=== PATIENT | female | born 1970 | race Caucasian/White ===

== ENCOUNTER 2016-11-26 23:20 | Emergency (ER) | payer OTHER ==
[2016-11-27] MEDS ORDERED: Ondansetron INJ* 2 MG/ML VIAL IV ONE (00:29)
[2016-11-27] MEDS ORDERED: Morphine INJ* 4 MG/ML 1 ML SYRINGE IV ONE (00:29)
[2016-11-27 00:48] LABS: Hematocrit 39 % (35-47); Hemoglobin 13.4 g/dl (12.0-16.0); Mean Corpuscular HGB Conc 34 g/dl (31-36); Mean Corpuscular Hemoglobin 35 pg (27-31); Mean Corpuscular Volume 103 fL (80-97); Mean Platelet Volume 10 um3 (7.4-10.4); Red Cell Distribution Width 13 % (10.5-15); White Blood Count 11.1 10^3/ul (3.5-10.8)
[2016-11-27 00:54] LABS: Urine Bacteria Absent (Absent); Urine Bilirubin Negative (Negative); Urine Glucose Negative (Negative); Urine Nitrite Negative (Negative)
[2016-11-27 01:03] LABS: ALT 24 U/L (7-52); AST 18 U/L (13-39); Albumin 4.7 g/dL (3.2-5.2); Alkaline Phosphatase 47 U/L (34-104); Anion Gap 9 mmol/L (2-11); Blood Urea Nitrogen 7 mg/dL (6-24); C Reactive Protein 15.17 mg/L (< 5.00); CO2 Carbon Dioxide 23 mmol/L (22-32); Calcium 9.5 mg/dL (8.6-10.3); Chloride 101 mmol/L (101-111); EGFR African American 89.8 (>60); EGFR Non-African American 69.8 (>60); Globulin 2.8 g/dL (2-4); Glucose 103 mg/dL (70-100); Lipase < 10 U/L (11.0-82.0); Potassium 3.3 mmol/L (3.5-5.0); Sodium 133 mmol/L (133-145); Total Protein 7.5 g/dL (6.4-8.9)
[2016-11-27] MEDS ORDERED: Iohexol 300* (CONTRAST) 10 ML SDV IV ONE (01:22)
[2016-11-27] MEDS ORDERED: Levofloxacin 500 MG IVPREMIX(* 500 MG/100 ML BAG IVPB ONE (02:33)
[2016-11-27] MEDS ORDERED: metroNIDAZOLE IV 500 MG/100ML* 500 MG/100 ML BAG IVPB ONE (02:33)
[2016-11-27 05:54] VITALS: BP 110/64
--- NOTE | 2016-11-27 06:02 | ED ---
Mily Bowman SooYoung, scribed for Sushil Dimas on 11/27/16 at 0028 . Abdominal Pain/Female - HPI Summary HPI Summary: A 46 y/o F presents to ED with with c/o constant L-sided flank pain onset this AM when she woke up. Described as sharp, throbbing and rated as 10 out of 10. Associated sx: n/v. Denies frequency, dysuria. PMHx: lupus, diverticulitis. She states she had diverticulitis 3x over the past few years. Denies prev kidney stones. - History of Current Complaint Chief Complaint: EDFlankPain Stated Complaint: ABD AND LOWER BACK PAIN Time Seen by Provider: 11/27/16 00:17 Hx Obtained From: Patient Onset/Duration: Sudden Onset, Lasting Hours, Still Present Timing: Constant Severity Currently: Severe Pain Intensity: 10 Pain Scale Used: 0-10 Numeric Location: Flank - L Character: Sharp, Other: - throbbing Associated Signs and Symptoms: Positive: Nausea, Vomiting. Negative: Urinary Symptoms - neg: frequency, dysuria Allergies/Adverse Reactions: Allergies Allergy/AdvReac Type Severity Reaction Status Date / Time No Known Allergies Allergy Verified 11/26/16 23:24 PMH/Surg Hx/FS Hx/Imm Hx Previously Healthy: No - lupus GI History: Reports: Hx Diverticulosis History: Denies: Hx Kidney Stones Infectious Disease History: No Infectious Disease History: Denies: Traveled Outside the [place] in Last 30 Days - Social History Occupation: Unemployed - OTHER Lives: With Family Review of Systems Negative: Fever Positive: Vomiting, Nausea Positive: pain - L flank. Negative: dysuria, frequency All Other Systems Reviewed And Are Negative: Yes Physical Exam Triage Information Reviewed: Yes Vital Signs On Initial Exam: Initial Vitals Temp Pulse Resp BP Pulse Ox 98.5 F 58 16 179/88 100 11/26/16 23:25 11/26/16 23:25 11/26/16 23:25 11/26/16 23:25 11/26/16 23:25 Vital Signs Reviewed: Yes Appearance: Positive: Well-Appearing, No Pain Distress Skin: Positive: Warm, Skin Color Reflects Adequate Perfusion, Dry Head/Face: Positive: Normal Head/Face Inspection Eyes: Positive: EOMI, [place] ENT: Positive: Normal ENT inspection Neck: Positive: Supple, Nontender Respiratory/Lung Sounds: Positive: Clear to Auscultation, Breath Sounds Present Cardiovascular: Positive: RRR, Pulses are Symmetrical in both Upper and Lower Extremities Abdomen Description: Positive: Soft, Other: - pos: LLQ tenderness Bowel Sounds: Positive: Present Musculoskeletal: Positive: Normal, Strength/ROM Intact Neurological: Positive: Normal, Sensory/Motor Intact, Alert, Oriented to Person Place, Time Diagnostics - Vital Signs Vital Signs Temp Pulse Resp BP Pulse Ox 11/26/16 23:27 98.5 F 58 16 179/88 100 11/26/16 23:25 98.5 F 58 16 179/88 100 - Laboratory Result Diagrams: 11/27/16 00:30 11/27/16 00:30 Lab Statement: Any lab studies that have been ordered have been reviewed, and results considered in the medical decision making process. - CT ABD/PEL CT CT Interpretation: Positive (See Comments) - IMPRESSION: 1. Focal colonic inflammation along the proximal descending colon with inflamed diverticula and free fluid in the left paracolic gutter. This is suspicious for diverticulitis although focal colitis, whether infectious, inflammatory or ischemic cannot be excluded. Correlate clinically. CT Interpretation Completed By: Radiologist Abdominal Pain Fem Course/Dx - Course Course Of Treatment: A 46 y/o F presents to ED with with c/o constant L-sided flank pain onset this AM when she woke up. Described as sharp, throbbing and rated as 10 out of 10. Associated sx: n/v. Denies frequency, dysuria. PMHx: lupus, diverticulitis. She states she had diverticulitis 3x over the past few years. Denies prev kidney stones. Pt given morphine, Zofran, Flagyl, Levaquin in ED. Bloodwork and lab results are without significant abnormality except CRP is 15.17. UA results show 1+ ketones, 1+ blood, trace esterase, 1.009 specific gravity, squamous epithelia are present. ABD/PEL CT shows "Focal colonic inflammation along the proximal descending colon with inflamed diverticula and free fluid in the left paracolic gutter. This is suspicious for diverticulitis although focal colitis, whether infectious, inflammatory or ischemic cannot be excluded. Correlate clinically.". Will D/C pt home with flagyl, Levaquin, Percocet, and to f/u with PCP. - Diagnoses Provider Diagnoses: Diverticulitis Discharge - Discharge Plan Condition: Stable Disposition: HOME Prescriptions: Levofloxacin TAB* [Levaquin TAB*] 500 mg PO DAILY #10 tab Metronidazole [Flagyl 500 MG TAB] 500 mg PO TID #30 tab oxyCODONE/Acetamin 5/325 MG* [Percocet 5/325 TAB*] 1 tab PO Q8H PRN #20 tab MDD 3 PRN Reason: Pain Patient Education Materials: Oxycodone/Acetaminophen (By mouth), Metronidazole (By mouth), Levofloxacin (By mouth), Diverticulitis (ED), Diverticulitis Diet ( ED) Referrals: [facility] [Outside] Non Staff,Doctor [Primary Care Provider] - Additional Instructions: Establish with a primary care provider and follow up in 3 days. Please return to the ED if you experience new or worsening symptoms. The documentation as recorded by the Mily cramer SooYoung accurately reflects the service I personally performed and the decisions made by me, Sushil Dimas.
--- NOTE | 2016-11-27 07:45 | RAD ---
CLINICAL HISTORY: Left flank pain COMPARISON: None TECHNIQUE: Multiple contiguous axial CT scans were obtained of the abdomen and pelvis after the administration of intravenous contrast. Coronal and sagittal multiplanar reformations are submitted for review. Oral contrast was not administered. Delayed images were obtained through the abdomen and pelvis. FINDINGS: LUNG BASES: The lung bases are clear. LIVER: The liver is normal in shape, size, contour, and attenuation. BILE DUCTS: There is no intrahepatic or extrahepatic biliary dilatation. GALLBLADDER: The gallbladder is normal, without pericholecystic inflammatory change. PANCREAS: The pancreas is normal, without mass or ductal dilatation. SPLEEN: Normal in size and appearance. UPPER GI TRACT: Evaluation of the gastrointestinal tract is limited by incomplete gastric distention. The upper GI tract is unremarkable. SMALL BOWEL AND MESENTERY: The small bowel is normal in contour, course, and caliber. There is no obstruction or dilatation. COLON: There is mucosal thickening of the descending colon with a small amount of fluid tracking along the paracolic gutter. There is an associated diverticulum at this level. There is a tubular, vermiform, hollow viscus that is blind ending, and originates from the cecum, consistent with a normal appendix. There is no periappendiceal inflammatory change. This is best seen on axial images 49 through 52. ADRENALS: Normal bilaterally. KIDNEYS: There is horizontal deviation of the axis of the right kidney. There is no appreciable hydronephrosis or nephrolithiasis. BLADDER: The bladder is smooth in contour. PELVIC ORGANS: There is prominence of the vasculature along the broad ligaments bilaterally with dilatation of the left compatible vein. The pelvic organs are otherwise unremarkable. AORTA: The aorta is normal. IVC: Unremarkable LYMPH NODES: There is no lymphadenopathy by size criteria. ABDOMINAL WALL: A hernia repair mesh is noted along the lower abdomen. BONES AND SOFT TISSUES: Unremarkable OTHER: None IMPRESSION: 1. MUCOSAL THICKENING AND INFLAMMATORY CHANGE OF THE DESCENDING COLON. THERE IS NO ASSOCIATED DIVERTICULA. THE DIFFERENTIAL INCLUDES ACUTE DIVERTICULITIS, INFECTIOUS OR NONINFECTIOUS INFLAMMATORY COLITIS, INCLUDING INFLAMMATORY BOWEL DISEASE. THERE IS NO LOCULATED FLUID COLLECTION TO SUGGEST ABSCESS. 2. PROMINENCE OF THE VASCULATURE ALONG THE BROAD LIGAMENT BILATERALLY. WHILE NONSPECIFIC, THIS CAN BE ASSOCIATED WITH PELVIC CONGESTION SYNDROME IN THE CORRECT CLINICAL SETTING.
== END 2016-11-27 05:55 | disposition home or self-care (01) ==
LOC: ED 23:20
DX: K57.92 Diverticulitis of intestine, part unspecified, without perforation or abscess without bleeding (principal); R11.2 Nausea with vomiting, unspecified; R10.84 Generalized abdominal pain; R30.0 Dysuria
CPT/HCPCS: 36415; 74177; 80053; 81003; 81015; 83605; 83690; 84702; 85025; 85610; 85730; 86140; 87086; 96374; 96375; 99284; J1956; J2270; J2405; Q9967